=== PATIENT | female | born 1980 | race African-American/Black ===

== ENCOUNTER 2017-04-06 14:05 | Inpatient (IN) | payer OTHER ==
--- NOTE | ~2017-04-06 | CO ---
Unit #: [id number] #: [id number] Patient: HANY PAREDES [id number] [address] [place], [place] [address] [id number] I MR#: [id number] NAME: HANY PAREDES ROOM: 317 Age: 36 Sex: F Admission Date: 04/06/2017 : 1980 Attending Physician: Jaspreet Tabares M.D. Primary Care Physician: Edgar Chavez M.D. Consultation Date: 04/07/2017 CONSULTATION REPORT REASON FOR CONSULTATION COPD exacerbation. CHIEF COMPLAINT Cough and shortness of breath. HISTORY OF PRESENT ILLNESS A 36-year-old female with past medical history of COPD presents with the complaint of cough, shortness of breath, increasing sputum production and also came in with complaint of chest pain. I am seeing the patient at the bedside. Denies any nausea, vomiting, diarrhea. REVIEW OF SYSTEMS Positive pallor. No edema. No cyanosis. No jaundice. Rest is as per history of present illness. The rest of a 12-point review of systems has been reviewed and is negative. PHYSICAL EXAMINATION VITAL SIGNS: Temperature 98, pulse rate 70, respirations 12, blood pressure 130/70. NEUROLOGIC: Awake, alert and oriented. No neuro deficits. HEENT: PERRLA. EOMI. NECK: Supple. No JVD. CHEST: Bilateral air entry. Bilateral mild rhonchi. GI: Nontender. Soft. Bowel sounds positive. EXTREMITIES: No edema. SKIN: No rashes, no ulcer. LYMPHATIC: No lymphadenopathy. DIAGNOSTIC STUDIES Labs and imaging have been reviewed. ASSESSMENT 1. Acute bronchitis. 2. Acute exacerbation of COPD. 3. Rule out pneumonia. PLAN Plan is to continue patient on IV steroid and will order noncontrast CT of the chest and procalcitonin level. Please see orders for detailed plan. Thank you very much for this consultation. Unit #: [id number] #: [id number] Patient: HANY PAREDES Dictated by... Maximino Bartlett TD: 04/08/2017 14:07 JOB #: [id number] CONSULTATION REPORT Page 1 of 1 X Rosangela Cronin MD CONSULTATION REPORT
--- NOTE | ~2017-04-06 | ST ---
Unit #: [id number] #: [id number] Patient: HANY PAREDES [id number] [facility]. [place] [address] [facility]. [place], [place] [address] [id number] I MR#: [id number] NAME: HANY PAREDES : 1980 SEX: F STUDY DATE/TIME: 04/08/2017 UNIT: C3A PCU ROOM: [facility] STUDY DESCRIPTION: Attending Physician: Jaspreet Tabares M.D. Primary Care Physician: Edgar Chavez M.D. CARDIOLOGY REPORT EXAM Walking Lexiscan Cardiolite stress test. FINDINGS Baseline EKG: Sinus tachycardia, heart rate 106 beats per minute, left atrial abnormality, Q wave in V1, poor R-wave progression, left ventricular hypertrophy, early repolarization, nonspecific ST-T wave abnormalities in lateral leads. PROCEDURE Lexiscan is a 4-minute test with Lexiscan being injected within the first minute followed by Cardiolite. EKG showed a 0.[address] depression in lateral leads. Patient had no complaints of chest pain, palpitations, or dizziness. Also, with worsening ST elevation in lead III and aVR which is about [address] elevation in lead III and aVR. Also, 1.[address] depression in aVL. Patient had no complaints of chest pain, palpitations, or dizziness. Had increased shortness of breath and fatigueness which resolved in recovery phase. Next, maximal heart rate response was 142 beats per minute with a maximum blood pressure response of 198/121 mmHg. Next, at the end of recovery phase, patient's blood pressure was 188/100. The staff on the nursing unit was called to bring her metoprolol 75 mg p.o. STAT for hypertension. Cardiolite was injected after Lexiscan within the first minute of the test. Radionuclide tests pending. Please correlate with nuclear images. Dictated by... Patito Peterson A.P.R.N. for Maximino Jackson TD: 04/08/2017 09:44 JOB #: [id number] Unit #: [id number] #: [id number] Patient: HANY PAREDES CARDIOLOGY REPORT Page 1 of 1 X Patito Peterson APRN CARDIOLOGY REPORT
--- NOTE | ~2017-04-06 | DS ---
Unit #: [id number] #: [id number] Patient: HANY PAREDES [id number] [address] [address] [id number] I MR#: [id number] NAME: HANY PAREDES ROOM: [facility] Age: 36 Sex: F Admission Date: 04/06/2017 : 1980 Discharge Date: 04/10/2017 Attending Physician: Jaspreet Tabares M.D. Primary Care Physician: Edgar Chavez M.D. DISCHARGE SUMMARY DISCHARGE DIAGNOSES 1. Pneumonia. 2. Hypertension. 3. Diabetes. 4. History of transient ischemic attack. 5. Noncompliance. 6. Tobacco use. CONSULTS 1. Dr. Oliver, cardiology. 2. Dr. Cronin, pulmonary. DISCHARGE MEDICATIONS 1. Tapering dose of prednisone. 2. Metformin 800 mg b.i.d. 3. Cetirizine 10 mg daily. 4. Atorvastatin 80 mg h.s. 5. BuSpar 7.5 mg daily. 6. Nicotine patch 14 mg daily. 7. Norvasc 5 mg daily. 8. Metoprolol 100 mg p.o. b.i.d. 9. Omnicef 300 mg b.i.d. for 7 days. 10. Hydrochlorothiazide 25 mg q.a.m. 11. Zestril 40 mg h.s. 12. Aspirin 325 daily. DIAGNOSTIC STUDIES AND PROCEDURES 1. Chest x-ray with borderline cardiomegaly. 2. CT chest without contrast right lower lobe peribronchial alveolar consolidation. 3. Thyroid ultrasound. No suspicious findings. Incidental 5 mm cyst in each thyroid lobe. HISTORY Please refer to History and Physical done by me for initial presentation of this female. HOSPITAL COURSE Pneumonia, status post evaluation by Pulmonary. Status post IV antibiotics, now okay with the Omnicef. Hypertension with noncompliance. The patient was counseled on the importance of complying with the home medications and the home medical regimen. Status post evaluation per cardiology. Stable. See discharge Unit #: [id number] #: [id number] Patient: HANY PAREDES medication reconciliation as above. Diabetes. Status post evaluation per Endocrinology. Hemoglobin A1c about 9.4. Outpatient follow up with Endocrinology. Resume home regime. Tobacco use. Counseled on importance of quitting. Will send her home with nicotine patch. History of TIA. Continue aspirin. DISPOSITION Home. FOLLOWUP Outpatient follow up with Cardiology, Pulmonary and Endocrinology. Dictated by... Jaspreet Tabares M.D. MALCOLM/chely TD: 04/10/2017 16:44 JOB #: [id number] DISCHARGE SUMMARY Page 1 of 1 X Jaspreet Tabares MD X DISCHARGE SUMMARY
--- NOTE | ~2017-04-06 | CT57 ---
[facility] A Service of [facility] RADIOLOGY TEXT RESULTS PATIENT: HANY PAREDES LOCATION: [facility] 317- : [birth year] UNIT #: [id number] AGE: [address]: Jaspreet Tabares MD SEX: F ORDER DR: [id number] [place] [id number] [facility]. [place], [place] [address] [id number] I MR#: [id number] Acc #: [id number] NAME: HANY PAREDES : 1980 SEX: F STUDY DATE/TIME: 04/07/2017 16:56 UNIT: [address] ROOM: [facility] STUDY DESCRIPTION: CT Chest Wo Cont Attending Physician: Jaspreet Tabares M.D. Ordering Physician: Rosangela Cronin M.D. Primary Care Physician: Edgar Chavez M.D. MEDICAL IMAGING REPORT This report is preliminary unless electronic signature is present EXAM Chest CT without contrast HISTORY Upper respiratory infection with cough and shortness of breath over the past 4 days. Chronic emphysema with exacerbation. TECHNIQUE Axial images were obtained without contrast and evaluated at lung and mediastinal windows. This CT exam was performed with one or more of the following radiation dose reduction techniques: automatic exposure control, adjustment of mA and/or kV according to patient size, and iterative reconstruction. FINDINGS Chest images at mediastinal window show no enlarged mediastinal or hilar lymph nodes. There is no evidence of pleural or pericardial fluid. Normal-sized nodes are seen adjacent to the trachea. Lung window imaging shows an area of alveolar consolidation in the right lower lobe in a peribronchial distribution consistent with an acute pneumonia. Also noted is mild volume loss at the left lung base involving anterior basilar segments of the left lower lobe. The upper lung oneal show mild emphysema with no suspicious infiltrates. No suspicious masses are seen in either lung. IMPRESSION Focal area of alveolar consolidation is seen in the right lower lobe in a peribronchial distribution consistent with acute pneumonia. The remaining lung oneal are clear. Emphysematous changes are seen in the upper lung oneal. [facility] A [facility] RADIOLOGY TEXT RESULTS PATIENT: HANY PAREDES LOCATION: [facility] 317-01 : [birth year] UNIT #: [id number] AGE: [address]: Jaspreet Tabares MD SEX: F ORDER DR: Dictated by... Lake Melendez M.D. THIS IS AN ELECTRONICALLY VERIFIED REPORT Lake Melendez M.D. at 04/08/2017 10:03 AM TORI/vangie TD: 04/08/2017 00:15 JOB #: [id number] MEDICAL IMAGING REPORT Page 1 of 1 COPY
--- NOTE | ~2017-04-06 | CO ---
Unit #: [id number] #: [id number] Patient: HANY PAREDES [id number] [address] [place], [place] [address] [id number] I MR#: [id number] NAME: HANY PAREDES ROOM: [facility] Age: 36 Sex: F Admission Date: 04/06/2017 : 1980 Attending Physician: Jaspreet Tabares M.D. Primary Care Physician: Edgar Chavez M.D. Consultation Date: 04/07/2017 CONSULTATION REPORT REASON FOR CONSULTATION Chest pain. HISTORY OF PRESENTING ILLNESS This is a 36-year-old -Italian female with a previous medical history of diabetes mellitus, hypertension, hyperlipidemia, TIAs, and a half pack per day smoker x20 years. She presented to the ER with complaints of increasing shortness of air over the last three weeks. Reports recent illness with frequent productive cough of yellowish sputum, fever, chills, body aches and a sore throat. She additionally reports intermittent chest pain. The chest pain is described as mid sternal and left chest stabbing pains with activity. The pains are worse with deep inspiration. The pains go away with rest and ibuprofen. She states she becomes diaphoretic and dyspneic with the pains at times. Her cardiac enzymes were negative and there were no acute findings on EKG. Her ischemic risk factors are positive for diabetes, hypertension, hyperlipidemia, tobacco abuse, and a positive family history of coronary artery disease. The patient has not been taking her diabetes and hypertension medicine routinely. States she is looking for a new primary care doctor and is trying to stretch out her prescription until she finds one. PAST MEDICAL HISTORY 1. Diabetes mellitus. 2. Hypertension. 3. Hyperlipidemia. 4. TIAs. 5. Tobacco abuse, one half pack per day x20 years. PAST SURGICAL HISTORY Tubal ligation. SOCIAL HISTORY She lives with her boyfriend. She does not work. Denies illicit drug use. Rare alcohol use socially. She smokes one half pack to one pack per day since she was 13 years old. FAMILY HISTORY Her mother had multiple cardiac stents and at the age of 51 after a CVA. Her father is 54 and has an AICD. Unit #: [id number] #: [id number] Patient: HANY PAREDES ALLERGIES No known drug allergies. HOME MEDICATIONS 1. Zestril 40 mg p.o. daily. 2. Metformin 850 mg p.o. twice daily. 3. Cetirizine 10 mg p.o. daily. 4. BuSpar 7.5 mg p.o. twice daily. 5. Atorvastatin calcium 80 mg p.o. daily. 6. Aspirin, enteric coated, 325 mg p.o. daily. REVIEW OF SYSTEMS Positive for shortness of breath, dyspnea on exertion, orthopnea, productive cough, fever, chills, body aches, nausea, vomiting and diarrhea. Reports hemoptysis this morning. Otherwise, negative except for what is stated in the HPI. PHYSICAL EXAMINATION GENERAL: This is an -Italian 36-year-old female. She is resting in bed in no acute distress. VITAL SIGNS: Temperature 98.3, heart rate 111 to 120 respiratory rate 22, blood pressure 179/108, 60 inches and 61 kg. HEENT: Head is atraumatic and normocephalic. Pupils are equal and round. Mucous membranes are moist. NECK: Supple. Trachea is midline. Negative for JVD. LUNGS: Clear to auscultation. Nonlabored respirations. CARDIOVASCULAR: S1, S2. Regular rate and rhythm. Positive 1/6 systolic murmur. ABDOMEN: Soft, nontender, nondistended. EXTREMITIES: Pulses are palpable. No pedal edema. No cyanosis. NEUROLOGIC: Alert and oriented x3. Moves all extremities equally and follows commands without difficulty. DIAGNOSTIC STUDIES LABORATORY: Strep screen was negative. Sodium 131, potassium 4.2, chloride 102, BUN 11, creatinine 0.9, glucose 407. Hemoglobin 12.2, hematocrit 38.6, white blood cell count 10.5, platelets 214. Point of care troponin was less than 0.05, troponin at 12:15 was less than 0.03 and repeat troponin was less than 0.03. BNP was 93. D-dimer was negative. IMAGING: Chest x-ray showed borderline (1) . Of note, CT scan of the abdomen and pelvis done August 28, 2008 showed multiple small noncalcified nodules within the right lung base, as well as early atherosclerotic calcification within the abdominal aorta. CARDIOVASCULAR: EKG showed sinus tachycardia with nonspecific T wave abnormalities and biatrial enlargement with a ventricular rate of 120. ASSESSMENT 1. Uncontrolled high blood pressure. 2. Probable dilated ascending aorta with aortic sclerosis. Unit #: [id number] #: [id number] Patient: HANY PAREDES 3. Chest pain, musculoskeletal. 4. Uncontrolled diabetes mellitus. 5. Smoking history. 6. Pulmonary nodules (2007). 7. Anxiety. 8. History of transient ischemic attack. 9. Hyperlipidemia. PLAN Blood pressure control. Continue lisinopril 40 mg p.o. every day. Add metoprolol 50 mg p.o. b.i.d., first dose now, and add hydrochlorothiazide 25 mg p.o. daily with first dose now. Check hemoglobin A1c, lipid profile, T4, and TSH. Continue statin therapy. Decrease aspirin to 81 mg p.o. daily. Check blood pressure supine and standing twice a day. 2D echocardiogram to check LV function. Will obtain exercise Cardiolite stress test in the morning. NPO after midnight and hold beta abdirahman in the morning for stress test tomorrow. The patient was advised on the importance of smoking cessation as well as the importance of diet and exercise. Discussed in great detail the importance of blood pressure and diabetes maintenance. Thank you for asking us to see this patient. We appreciate the consult. Dictated by... Mary Hallman APRN for Jose Oliver M.D. MICHELLE/love TD: 04/07/2017 12:05 JOB #: [id number] CONSULTATION REPORT Page 1 of 1 X X CONSULTATION REPORT
--- NOTE | ~2017-04-06 | TH ---
Unit #: [id number] #: [id number] Patient: HANY PADILLA [id number] [address] [address] [id number] I MR#: [id number] NAME: HANY PAREDES : 1980 SEX: F STUDY DATE/TIME: 04/08/2017 UNIT: C3A PCU ROOM: [facility] STUDY DESCRIPTION: Lexiscan stress test - Nuclear Attending Physician: Jaspreet Tabares M.D. Primary Care Physician: Edgar Chavez M.D. CARDIOLOGY REPORT PROCEDURE PERFORMED Lexiscan Cardiolite stress test - Nuclear portion. PROCEDURE Using technetium 99m-labeled Cardiolite, rest and stress SPECT images were obtained. Multiple SPECT images were obtained in various views, including horizontal and vertical long axis and short axis views of the left ventricle. Images were obtained by gated SPECT method. The patient was administered 10.91 mCi of Cardiolite at rest. The patient was administered 32.8 mCi of Cardiolite after Lexiscan infusion was completed. On the stress images, there is a small area of mildly decreased tracer uptake activity in the anteroapical wall. The rest images show normal perfusion. Comparing the rest and stress images, there is suspicion for a small area of stress-induced ischemia involving the anteroapical wall of the left ventricle. The left ventricular ejection fraction is calculated to be 43%. "There is no focal wall motion abnormality seen." CONCLUSION 1. There is suspicion for a small area of stress-induced ischemia involving the anteroapical wall of the left ventricle. 2. The left ventricular ejection fraction is calculated to be 43%. 3. There is "mild global hypokinesis seen." 4. Technically limited study. Clinical correlation is requested. Dictated by... Maximino Jackson TD: 04/08/2017 15:56 JOB #: [id number] Unit #: [id number] #: [id number] Patient: HANY PADILLA CARDIOLOGY REPORT Page 1 of 1 X Ailyn Ragsdale MD <ELECTRONICALLY SIGNED> 06/18/17 1429 CARDIOLOGY REPORT
--- NOTE | ~2017-04-06 | A ---
[facility] Nutrition Therapy DATE: 04/08/17 Patient: HANY PAREDES Physician: ANGE Address: [address] Room/Bed: [address] [place] [address], Zip: [place] [address] Admit Date: 04/06/17 Date of : [birth year] Height: 5 0 Weight: 134 61 NUTRITIONAL ASSESSMENT: REASON: Consult for DM diet education Assessment: RD spoke with pt at bedside. Pt reports that it is difficult for her to make healthy decisions at home. RD provided extensive consistent carbohydrate education, and discussed strategies that the pt could follow at home. Pt reportedly only consumes one large meal per day, and RD discussed implications of this. Pt voiced understanding of the information and demonstrated motivation to make changes. RD expects compliance with the diet. RD provided printed materials for the pt's reference and encouraged the pt to contact RD with any further questions. RD to remain available. Recommendations: 1. Pt to follow a 45 gram consistent carbohydrate diet as instructed by RD. 2. Pt would benefit from seeing an outpatient RD for follow up and accountability. Please contact RD with any further nutritional needs. Respectfully, JAYY CRUM RD, LD [employer] [facility] [employer] cc: client file
--- NOTE | ~2017-04-06 | HP ---
Unit #: [id number] #: [id number] Patient: HANY PAREDES [id number] [address] [address] [id number] I MR#: [id number] NAME: HANY PAREDES ROOM: [facility] Age: 36 Sex: F Admission Date: 04/06/2017 : 1980 Attending Physician: Jaspreet Tabares M.D. Primary Care Physician: Edgar Chavez M.D. HISTORY AND PHYSICAL REASON FOR ADMISSION 1. Acute exacerbation of chronic obstructive pulmonary disease. 2. History of bronchitis. 3. Atypical chest pain. 4. Hypertension. 5. Noncompliance. 6. Diabetes. 7. History of questionable CVAs in the past. 8. Continued tobacco use. HISTORY OF PRESENT ILLNESS Ms. Paredes is a 36-year-old female, patient of Dr. Chavze, who came to the emergency room with the complaint of shortness of air and dyspnea for several weeks, along with some atypical heavy sensation in the chest. The patient also states that she has been having some productive cough with some yellow greenish phlegm. She denies any fever or chills. Denies any nausea, vomiting, diarrhea or abdominal pain. No (1) to the heavy sensation through the chest. No radiation to any other parts of the body. The patient denies any previous history of any coronary artery disease. She does have a history of hypertension. However, she was not taking her medications. She said she was taking he medications once in two to three days. The patient also tells me that she had been having strokes in the past. She continues to smoke. PAST MEDICAL HISTORY 1. Hypertension. 2. Diabetes. 3. Chronic obstructive pulmonary disease. 4. Questionable stroke with questionable TIA. PAST SURGICAL HISTORY Tubal ligation. SOCIAL HISTORY Continues to smoke. Drinks occasionally. Denies any alcohol use. FAMILY HISTORY Unremarkable. ALLERGIES No known drug allergies. HOME MEDICATIONS Apparently she was supposed to take at home Unit #: [id number] #: [id number] Patient: HANY PAREDES 1. Lisinopril. 2. Metformin. 3. Naprosyn. 4. Atorvastatin. 5. Aspirin. 6. Buspirone. 7. Cetirizine. 8. Metformin. 9. Zestril. REVIEW OF SYSTEMS Negative except as above. PHYSICAL EXAMINATION GENERAL: The patient is a 36-year-old female in no acute distress. VITALS: Blood pressure 181/93, heart rate 120, respiratory rate 20, temperature 98.2. HEENT: Head is atraumatic. Pupils equal, round and reactive to light and accommodation. Extraocular muscles intact. Oropharynx is clear. NECK: Supple. No mass, no JVD, no bruits. CHEST: Diminished bilaterally with very mild expiratory wheezing. HEART: S1, S2. No murmurs. ABDOMEN: Soft, nontender, nondistended. LOWER EXTREMITIES: Without any cyanosis, clubbing or edema. NEUROLOGIC: Patient is grossly intact without any focal deficits. DIAGNOSTIC STUDIES IMAGING: Chest x-ray shows cardiomegaly. LABORATORY: Chemistry significant for blood glucose 407, sodium 131. Set of cardiac enzymes negative. White count 10.5, hemoglobin 12.2, hematocrit 38.6. ASSESSMENT/PLAN 1. Acute exacerbation of chronic obstructive pulmonary disease. Continue bronchodilator. Decrease steroids. Status post evaluation per pulmonary. Ordered CT of the chest. Follow up on the results. 2. Questionable bronchitis. Deferred to pulmonology. No white count. No fever. Again, will defer to pulmonary for the antibiotics. 3. Chest pain, status post cardiology evaluation. Two-dimensional echo is pending. Scheduled for stress test. 4. Hypertension. Continue Zestril. Started on Lopressor per cardiology and HCTZ. 5. Noncompliance. Counseled on the importance of compliance with medications. 6. Diabetes. Status post evaluation per Dr. Du. Likely exacerbated with the IV steroids. IV steroids have been decreased. Continue management per Dr. Du. 7. History of questionable CVA. TIAs in the past. Continue aspirin. 8. Continues tobacco use. Counseled on the importance of quitting tobacco. 9. GI and DVT prophylaxis. 10. Continue PPI and Lovenox. 11. Dyslipidemia. Continue statin. Unit #: [id number] #: [id number] Patient: HANY PAREDES Dictated by Maximino Lees/david TD: 04/08/2017 07:10 JOB #: [id number] HISTORY AND PHYSICAL Page 1 of 1 X Jaspreet Tabares MD X HISTORY AND PHYSICAL
--- NOTE | ~2017-04-06 | CR72 ---
[facility] A Service of [facility] RADIOLOGY TEXT RESULTS PATIENT: HANY PAREDES LOCATION: [facility] 317-01 : [birth year] UNIT #: [id number] AGE: [address]: Jaspreet Tabares MD SEX: F ORDER DR: [id number] [facility] [address] [place], [place] [address] [id number] I MR#: [id number] Acc #: [id number] NAME: HANY PAREDES : 1980 SEX: F STUDY DATE/TIME: 04/06/2017 17:21 UNIT: CEDOF ROOM: 56358 STUDY DESCRIPTION: CR Chest Single View Portable Attending Physician: Jaspreet Tabares M.D. Ordering Physician: Carlos Linares D.O. Primary Care Physician: Edgar Chavez M.D. MEDICAL IMAGING REPORT This report is preliminary unless electronic signature is present EXAM Portable chest 04/06/2017 HISTORY 36-year-old female with chest pain and shortness of air beginning 2.5 weeks ago. COMPARISON STUDIES Chest 09/05/2005. FINDINGS Frontal chest demonstrates clear lungs. No pleural effusion or pneumothorax. Heart size is borderline enlarged. Mediastinal pulmonary vasculature unremarkable. IMPRESSION Borderline cardiomegaly. No other acute chest findings. Dictated by... Darwin Evans M.D. THIS IS AN ELECTRONICALLY VERIFIED REPORT Darwin Evans M.D. at 04/06/2017 10:54 PM JALEN/jo-ann TD: 04/06/2017 21:32 JOB #: [id number] MEDICAL IMAGING REPORT Page 1 of 1 COPY
--- NOTE | ~2017-04-06 | US128 ---
[id number] [facility] [address]. [place], [place] [address] [id number] I MR#: [id number] #: [id number] NAME: HANY PAREDES : 1980 SEX: F STUDY DATE/TIME: 04/07/2017 18:45 UNIT: [id number] ROOM: [facility] STUDY DESCRIPTION: US Thyroid Attending Physician: Jaspreet Tabares M.D. Ordering Physician: Jaspreet Tabares M.D. Primary Care Physician: Edgar Chavez M.D. MEDICAL IMAGING REPORT This report is preliminary unless electronic signature is present EXAM Thyroid ultrasound HISTORY Difficulty swallowing for several years. FINDINGS Ultrasound examination of the thyroid gland demonstrates a 5 mm incidental cyst in the lower pole of the right thyroid lobe and a 5 mm incidental cyst in the upper pole left thyroid lobe. No solid or suspicious thyroid nodule. Both thyroid lobes measure 5.1 cm in length. Remainder of the thyroid parenchymal echotexture is normal. IMPRESSION 1. No suspicious finding. No thyroid enlargement or solid nodule. 2. Incidental 5 mm cyst in each thyroid lobe. Dictated by... Wellington Carlisle M.D. THIS IS AN ELECTRONICALLY VERIFIED REPORT Wellington Carlisle M.D. at 04/08/2017 11:30 PM DFL/summer TD: 04/08/2017 01:27 JOB #: [id number] MEDICAL IMAGING REPORT Page 1 of 1 COPY
--- NOTE | ~2017-04-06 | CO ---
Unit #: [id number] #: [id number] Patient: HANY PAREDES [id number] [facility]. [place], [place] [address] [id number] I MR#: [id number] NAME: HANY PAREDES ROOM: [facility] Age: Sex: F Admission Date: 04/06/2017 : 1980 Attending Physician: Jaspreet Tabares M.D. Primary Care Physician: Edgar Chavez M.D. Consultation Date: 04/06/2017 CONSULTATION REPORT REASON FOR CONSULT Management of diabetes mellitus. HISTORY OF PRESENT ILLNESS The patient is a 36-year-old black female who has history of type 2 diabetes mellitus, hypertension, hyperlipidemia, TIAs, history of tobacco use. Presented to the emergency room with increasing shortness of air associated with some yellowish sputum, fever, chills and body aches, some chest pains. She has been started on IV steroids, receiving Solu-Medrol 80 mg. Her blood sugar has been running over 300 mg/dL. Her A1C is above 9%. I have been asked to see the patient for further management of diabetes. As per patient, she is supposed to be only on metformin, but she has not been taking it regularly. She has not seen Dr. Chavez in a long time either. MEDICAL HISTORY 1. Type 2 diabetes mellitus. 2. Hypertension. 3. Hyperlipidemia. 4. TIAs. 5. Tobacco use, half pack per day for 20 years. PAST SURGICAL HISTORY Tubal ligation. SOCIAL HISTORY Lives with her boyfriend. Does not work. No illicit drug abuse. Continues to smoke since age 13. FAMILY HISTORY Coronary artery disease and diabetes. ALLERGIES None. HOME MEDICATIONS Supposed to be Zestril 40 mg daily, metformin 850 b.i.d., BuSpar 7.5 mg b.i.d., atorvastatin 80 mg daily, aspirin daily, but of note the patient has not been taking her medications regularly at home. REVIEW OF SYSTEMS A 12-point review of systems was remarkable for shortness of air on exertion, dyspnea, cough, fever, chills, some nausea, hyperglycemia. Is Unit #: [id number] #: [id number] Patient: HANY PAREDES reported to have some diarrhea. Rest of the review of systems is unremarkable. PHYSICAL EXAMINATION GENERAL: On physical examination she is comfortable, awake, alert, oriented to time, place and person. No acute respiratory distress. VITAL SIGNS: Temp is 98.2, pulse 120, respirations 20, blood pressure 181/93. HEENT: EOMI. Pupils equally react to light. NECK: Supple. She does have diffuse thyromegaly; right lobe is larger than the left lobe. CHEST: Good air entry. CVS: Regular rhythm. S1 and S2. No murmurs. ABDOMEN: Soft. Nontender. Nondistended. Bowel sounds positive. EXTREMITIES: No edema or ulcers are noted. NEUROLOGIC: Nonfocal. Cranial nerves grossly intact. SKIN: No rashes or ulcers noted. MUSCULOSKELETAL: Normal. DIAGNOSTIC STUDIES LABORATORY: Labs were reviewed. Glucose was 407, sodium 131, potassium 4.2, chloride 102, CO2 20. A1C 9.4. Triglycerides above 400. TSH 0.16. ASSESSMENT 1. Type 2 diabetes mellitus, poorly controlled due to poor compliance. 2. Hypertension, uncontrolled. 3. Goiter. 4. Abnormal thyroid function test consistent with euthyroid sick syndrome. PLAN AND RECOMMENDATIONS Will get the nutrition consult. Give patient Levemir 1 dose now and then start NPH 40 units before each Solu-Medrol dose. NovoLog 10 units each meal. Limit carbohydrates to 45 grams per meal. Check the thyroid ultrasound. Thanks again for the consultation. Dictated by... Maximino Finnegan/tuan TD: 04/08/2017 11:29 JOB #: [id number] Unit #: [id number] #: [id number] Patient: HANY PAREDES CONSULTATION REPORT Page 1 of 1 X Leandro Du MD CONSULTATION REPORT
--- NOTE | ~2017-04-06 | EKG ---
PATIENT: HANY PAREDES UNIT #: [id number] Ventricular Rate: 122 BPM Atrial Rate: 122 BPM P-R Interval: 124 ms QRS Duration: 84 ms Q-T Interval: 346 ms QTC Calculation(Bezet): 493 ms P [place]: 72 degrees Calculated R [place]: 8 degrees Calculated T [place]: 74 degrees Diagnosis Line: Sinus tachycardia Diagnosis Line: Biatrial enlargement Diagnosis Line: Poor R wave progression questionable lead position Diagnosis Line: or body habitus Abnormal ECG Diagnosis Line: No previous ECGs available Diagnosis Line: Confirmed by SULAIMAN JARRETT MD ([id number]) on 04/07/2017 Diagnosis Line: 10:02:42 AM INTERPRETING MD: LUIZA LEE
[~2017-04-06 14:05] MED LIST: TYLOX 5/500 CAP1 CAP PO
[2017-04-06 17:06] LABS: BASOPHIL% 0.3 % (0-2.5); EOSINOPHIL# 0.2 X10e3 (0-0.7); EOSINOPHIL% 1.3 % (0.0-7.0); HEMATOCRIT 41.3 % (35.0-45.0); HEMOGLOBIN 13.3 gm/dL (12.0-16.0); LYMPHOCYTE# 3.8 X10e3 (1.0-3.5); LYMPHOCYTE% 29.7 % (17.0-45.0); MEAN CELL VOLUME 84.7 FL (83-96); MEAN CORPUSCULAR HEMOGLOBIN 27.2 PG (28-34); MEAN CORPUSCULAR HGB CONC 32.1 g/dL (30-36); MEAN PLATELET VOLUME 8.6 FL (6.5-11.5); MONOCYTE# 0.5 X10e3 (0-1.0); MONOCYTE% 3.8 % (3.0-12.0); NEUTROPHIL# 8.2 X10e3 (1.5-7.1); NEUTROPHIL% 64.9 % (40-75); PLATELET COUNT 253 X10e3 (140-420); RED BLOOD COUNT 4.87 X10e (3.90-5.30); RED CELL DISTRIBUTION WIDTH 14.6 % (11.0-15.5); WHITE BLOOD COUNT 12.7 X10e3 (4.0-10.5)
[2017-04-06 17:09] LABS: POC - CKMB 1.2 ng/mL (0.0-7.9); POC - TROPONIN <0.05 ng/mL (<=0.05)
[2017-04-06 17:12] LABS: DIFF IND NO
[2017-04-06 17:17] LABS: ALKALINE PHOSPHATASE 73 U/L (32-92); ALT (SGPT) 24 U/L (10-40); AST (SGOT) 19 U/L (10-42); BILIRUBIN, DIRECT <0.1 mg/dL (0.0-0.2); BILIRUBIN,INDIRECT 0.2 mg/dL (0.0-0.9); BILIRUBIN,TOTAL 0.3 mg/dL (0.2-2.0); BLOOD UREA NITROGEN 9 mg/dL (9-23); BUN/CREATININE RATIO 12.85; CALCIUM SERUM 9.1 mg/dL (8.4-10.2); CARBON DIOXIDE 22 mmol/L (22-31); CHLORIDE 103 mmol/L (100-111); CREATININE SERUM 0.7 mg/dL (0.6-1.4); GLOM FILT RATE Estimated 130.1 mL/min (>60); GLUCOSE FASTING 189 mg/dL (70-110); POTASSIUM 3.6 mmol/L (3.5-5.1); PROTEIN TOTAL SERUM 7.9 g/dL (6.0-8.3); SODIUM 134 mmol/L (135-145)
[2017-04-06 17:24] LABS: URINE SOURCE CLEAN CATCH
[2017-04-06 17:31] LABS: URINE APPEARANCE CLEAR; URINE BILIRUBIN NEG (NEG); URINE BLOOD NEG (NEG); URINE COLOR YELLOW; URINE GLUCOSE 500 MG/DL (NEG); URINE KETONE NEG (NEG); URINE LEUKOCYTE ESTERASE NEG (NEG); URINE NITRATE NEG (NEG); URINE PH 5.5 (5-8); URINE PROTEIN 2+ (NEG); URINE SPECIFIC GRAVITY 1.022 (1.003-1.035)
[2017-04-06 17:35] LABS: U HYALINE CASTS AUWI 0-2 /[LPF]; URBCS1 AUWI 0-2 /[HPF] (0-2); URINE BACTERIA AUWI NEG (NEGATIVE); URINE SQUAMOUS EPITHELIAL CELL OCC /[HPF]; UWBCS1 AUWI 0-2 (0-5)
[2017-04-06 17:41] LABS: AMPHETAMINE NEG (NEG); BARBITURATES NEG (NEG); BENZODIAZEPINES NEG (NEG); COCAINE NEG (NEG); MARIJUANA NEG (NEG); OPIATES NEG (NEG); TRICYCLIC ANTIDEPRESSANTS POS (NEG); U METHADONE NEG (NEG)
[2017-04-06 17:44] LABS: CULTURE INDICATED? NO
[2017-04-06 18:39] LABS: POC - CKMB <1.0 ng/mL (0.0-7.9); POC - TROPONIN <0.05 ng/mL (<=0.05)
[2017-04-06] MEDS ORDERED: ZESTRIL40 MG PO (22:10)
[2017-04-06] MEDS ORDERED: ALL DAY ALLERGY10 M3 PO (22:12)
[2017-04-06] MEDS ORDERED: ASPIRIN ENTERI325 M1 PO (22:13)
[2017-04-06] MEDS ORDERED: ATORVASTATIN CA80 MG PO (22:13)
[2017-04-06] MEDS ORDERED: BUSPIRONE HCL7.5 MG PO (22:13)
[2017-04-07 01:18] LABS: %MB 2.7 % (0.0-4.0); MB 3.3 ng/ml
[2017-04-07 06:12] LABS: HEMATOCRIT 38.6 % (35.0-45.0); HEMOGLOBIN 12.2 gm/dL (12.0-16.0); MEAN CELL VOLUME 85.7 FL (83-96); MEAN CORPUSCULAR HEMOGLOBIN 27.2 PG (28-34); MEAN CORPUSCULAR HGB CONC 31.7 g/dL (30-36); MEAN PLATELET VOLUME 8.8 FL (6.5-11.5); RED BLOOD COUNT 4.5 X10e (3.90-5.30); RED CELL DISTRIBUTION WIDTH 14.6 % (11.0-15.5); WHITE BLOOD COUNT 10.5 X10e3 (4.0-10.5)
[2017-04-07 06:58] LABS: ALBUMIN SERUM 3.6 g/dL (3.5-5.0); BILIRUBIN,TOTAL 0.4 mg/dL (0.2-2.0); BUN/CREATININE RATIO 12.22; CALCIUM SERUM 9.6 mg/dL (8.4-10.2); CREATININE SERUM 0.9 mg/dL (0.6-1.4); GLOM FILT RATE Estimated 96.1 mL/min (>60); POTASSIUM 4.2 mmol/L (3.5-5.1); PROTEIN TOTAL SERUM 6.9 g/dL (6.0-8.3)
[2017-04-07 07:11] LABS: %MB 4.3 % (0.0-4.0); MB 2.8 ng/ml
[2017-04-07 11:10] LABS: CHOLESTEROL 211 mg/dL (0-200); HDL CHOLESTEROL 44 mg/dL (35-95); TRIGLYCERIDES 409 mg/dL (10-160)
[2017-04-07 11:48] LABS: THYROID STIMULATING HORMONE 0.16 uIU/ml (0.34-5.60)
[2017-04-07 11:55] LABS: FREE THYROXIN (T4) 1.14 ng/dL (0.58-1.64)
[2017-04-08 06:46] LABS: HEMATOCRIT 37.6 % (35.0-45.0); HEMOGLOBIN 11.9 gm/dL (12.0-16.0); MEAN CELL VOLUME 84.2 FL (83-96); MEAN CORPUSCULAR HEMOGLOBIN 26.8 PG (28-34); MEAN CORPUSCULAR HGB CONC 31.8 g/dL (30-36); MEAN PLATELET VOLUME 8.4 FL (6.5-11.5); RED BLOOD COUNT 4.47 X10e (3.90-5.30); RED CELL DISTRIBUTION WIDTH 14.4 % (11.0-15.5)
[2017-04-08 06:47] LABS: WHITE BLOOD COUNT 16.6 X10e3 (4.0-10.5)
[2017-04-08 07:10] LABS: BUN/CREATININE RATIO 18.75; CALCIUM SERUM 9.9 mg/dL (8.4-10.2); CREATININE SERUM 0.8 mg/dL (0.6-1.4); GLOM FILT RATE Estimated 110.8 mL/min (>60); POTASSIUM 4.2 mmol/L (3.5-5.1)
[2017-04-09 05:50] LABS: HEMATOCRIT 36.7 % (35.0-45.0); HEMOGLOBIN 11.5 gm/dL (12.0-16.0); MEAN CELL VOLUME 85.3 FL (83-96); MEAN CORPUSCULAR HEMOGLOBIN 26.8 PG (28-34); MEAN CORPUSCULAR HGB CONC 31.4 g/dL (30-36); MEAN PLATELET VOLUME 8.8 FL (6.5-11.5); RED BLOOD COUNT 4.3 X10e (3.90-5.30); RED CELL DISTRIBUTION WIDTH 14.6 % (11.0-15.5); WHITE BLOOD COUNT 19.6 X10e3 (4.0-10.5)
[2017-04-09 06:22] LABS: BUN/CREATININE RATIO 23.33; CALCIUM SERUM 9.4 mg/dL (8.4-10.2); CREATININE SERUM 0.9 mg/dL (0.6-1.4); GLOM FILT RATE Estimated 96.1 mL/min (>60); POTASSIUM 3.5 mmol/L (3.5-5.1)
[2017-04-10] MEDS ORDERED: NICOTINE1 EACH TD (17:19)
[2017-04-10] MEDS ORDERED: DULERA 200 MCG/13 GM INH (17:20)
[2017-04-10] MEDS ORDERED: PROVENTIL INH0.5 ML INH (17:40)
[2017-04-10] MEDS ORDERED: HYDROCHLOROTHIA25 MG PO (17:50)
[2017-04-10] MEDS ORDERED: AMLODIPINE BESYL5 MG PO (17:51)
[2017-04-10] MEDS ORDERED: OMNICEF300 MG PO (17:53)
[2017-04-10] MEDS ORDERED: METOPROLOL SUC100 MG PO (17:53)
[2017-04-14] MEDS ORDERED: ALIVE WOMEN'S1 EAC1 PO (08:22)
[2017-04-14] MEDS ORDERED: ZOFRAN PO (08:22)
[2017-04-14] MEDS ORDERED: METFORMIN HCL850 MG PO (22:11)
== END 2017-04-10 18:26 | disposition home or self-care (01) | DRG 190 ==
LOC: CED 14:05 → C3A PCU 20:33 → CEDOF 20:33 → CED 20:43 → CEDOF 20:43 → C3A PCU 21:45 → CEDOF 21:45 → C3A PCU 21:45
PROVIDERS: Emergency Medicine; Hospitalist; Internal Medicine Cardiovascular Disease
PROC: B24BYZZ Ultrasonography of Heart with Aorta using Other Contrast (ICD-10-PCS; principal; 2017-04-07)
DX: J44.1 Chronic obstructive pulmonary disease with (acute) exacerbation (principal); J18.9 Pneumonia, unspecified organism; I11.9 Hypertensive heart disease without heart failure; R07.89 Other chest pain; F17.210 Nicotine dependence, cigarettes, uncomplicated; Z86.73 Personal history of transient ischemic attack (TIA), and cerebral infarction without residual deficits; Z91.14 Patient's other noncompliance with medication regimen; Z71.6 Tobacco abuse counseling; Z79.82 Long term (current) use of aspirin; Z98.51 Tubal ligation status; I70.0 Atherosclerosis of aorta; I77.819 Aortic ectasia, unspecified site; E11.65 Type 2 diabetes mellitus with hyperglycemia; R91.8 Other nonspecific abnormal finding of lung field; E07.81 Sick-euthyroid syndrome; E04.9 Nontoxic goiter, unspecified; J20.9 Acute bronchitis, unspecified; J44.0 Chronic obstructive pulmonary disease with (acute) lower respiratory infection; R00.0 Tachycardia, unspecified; T38.0X5A Adverse effect of glucocorticoids and synthetic analogues, initial encounter; Z79.84 Long term (current) use of oral hypoglycemic drugs
CPT/HCPCS: 36415; 71010; 71250; 76536; 78452; 80048; 80053; 80061; 80076; 80307; 81003; 82308; 82550; 82553; 82947; 83036; 83690; 83880; 84439; 84443; 84484; 84703; 85025; 85027; 85379; 87651; 93005; 93017; 93306; 94640; 94760; 96374; 96375; 99285; A9500; J0360; J1650; J1815; J1885; J2270; J2405; J2785; J2920; J2930

== ENCOUNTER → 2017-04-14 | Outpatient (CLI) | payer OTHER ==
[~2017-04-14] MED LIST changes: +ALIVE WOMEN'S1 EAC1 PO; +ALL DAY ALLERGY10 M3 PO; +AMLODIPINE BESYL5 MG PO; +ASPIRIN ENTERI325 M1 PO; +ATORVASTATIN CA80 MG PO; +BUSPIRONE HCL7.5 MG PO; +DULERA 200 MCG/13 GM INH; +HYDROCHLOROTHIA25 MG PO; +METFORMIN HCL850 MG PO; +METOPROLOL SUC100 MG PO; +NICOTINE1 EACH TD; +OMNICEF300 MG PO; +PROVENTIL INH0.5 ML INH; +ZESTRIL40 MG PO; +ZOFRAN PO
--- NOTE | ~2017-04-14 | EKG ---
PATIENT: HANY PADILLA UNIT #: [id number] Ventricular Rate: 90 BPM Atrial Rate: 90 BPM P-R Interval: 130 ms QRS Duration: 80 ms Q-T Interval: 374 ms QTC Calculation(Bezet): 457 ms P [place]: 48 degrees Calculated R [place]: 8 degrees Calculated T [place]: 89 degrees Diagnosis Line: Normal sinus rhythm Diagnosis Line: Possible Left atrial enlargement Diagnosis Line: Left ventricular hypertrophy Diagnosis Line: Nonspecific T wave abnormality Diagnosis Line: Abnormal ECG Diagnosis Line: Diagnosis Line: Confirmed by SHANT ANDERSEN MD ([id number]) on Diagnosis Line: 04/15/2017 7:38:20 AM INTERPRETING : LUIS M
[2017-04-14 08:21] LABS: HEMATOCRIT 35.6 % (35.0-45.0); HEMOGLOBIN 11.5 gm/dL (12.0-16.0); MEAN CELL VOLUME 84.7 FL (83-96); MEAN CORPUSCULAR HEMOGLOBIN 27.4 PG (28-34); MEAN CORPUSCULAR HGB CONC 32.3 g/dL (30-36); RED BLOOD COUNT 4.21 X10e (3.90-5.30); RED CELL DISTRIBUTION WIDTH 14.6 % (11.0-15.5)
[2017-04-14 08:37] LABS: INR 0.9; PARTIAL THROMBOPLASTIN TIME 25.4 SECONDS (23.5-31.3); PROTHROMBIN TIME (PATIENT) 9.7 SECONDS (9.6-11.5)
[2017-04-14 08:43] LABS: CREATININE SERUM 0.7 mg/dL (0.6-1.4); GLOM FILT RATE Estimated 130.1 mL/min (>60); POTASSIUM 4.4 mmol/L (3.5-5.1)
== END | disposition home or self-care (01) ==
LOC: CCVL 07:51
PROVIDERS: Internal Medicine Cardiovascular Disease
PROC: 4A023N7 Measurement of Cardiac Sampling and Pressure, Left Heart, Percutaneous Approach (ICD-10-PCS; principal; 2017-04-14)
PROC: B211YZZ Fluoroscopy of Multiple Coronary Arteries using Other Contrast (ICD-10-PCS; 2017-04-14)
PROC: B215YZZ Fluoroscopy of Left Heart using Other Contrast (ICD-10-PCS; 2017-04-14)
DX: I25.118 Atherosclerotic heart disease of native coronary artery with other forms of angina pectoris (principal); I10 Essential (primary) hypertension; E11.65 Type 2 diabetes mellitus with hyperglycemia; Z79.84 Long term (current) use of oral hypoglycemic drugs; F17.200 Nicotine dependence, unspecified, uncomplicated; E78.5 Hyperlipidemia, unspecified; Z79.899 Other long term (current) drug therapy; Z79.82 Long term (current) use of aspirin; Z86.73 Personal history of transient ischemic attack (TIA), and cerebral infarction without residual deficits; Z82.49 Family history of ischemic heart disease and other diseases of the circulatory system; Z98.51 Tubal ligation status
CPT/HCPCS: 36415; 80048; 84703; 85027; 85610; 85730; 93005; C1769; C1887; C1894; J1644; J2250; J3010

== ENCOUNTER 2017-07-01 11:46 | Emergency (ER) | payer OTHER ==
[~2017-07-01] VITALS: Ht 152.4 cm; Wt 63.5 kg
--- NOTE | ~2017-07-01 | CR63 ---
[facility] A Service of [facility] RADIOLOGY TEXT RESULTS PATIENT: HANY PADILLA LOCATION: [facility] : [birth year] UNIT #: [id number] AGE: [address]: Love Chavez MD SEX: F ORDER DR: [id number] [facility]. [place], [place] [address] [id number] MR#: [id number] #: [id number] NAME: HANY PADILLA : 1980 SEX: F STUDY DATE/TIME: 07/01/2017 13:10 UNIT: [facility] ROOM: STUDY DESCRIPTION: CR Chest 2 View Attending Physician: Love Chavez M.D. Ordering Physician: Love Chavez M.D. Primary Care Physician: Primary Care Physician No MEDICAL IMAGING REPORT This report is preliminary unless electronic signature is present EXAM Two-view chest, 07/01/2017 INDICATION 37-year-old female with cough, congestion, chest pain. Symptoms for 3 days. Hypertension. TECHNIQUE 2 views of the chest were performed. COMPARISON Correlation is made with CT 04/07/2017. FINDINGS Cardiac silhouette is borderline in size and stable. The vascularity is unremarkable. There is chronic atelectasis or scarring in the left lung base. On the frontal projection there are coarsened interstitial markings in the right lower lobe. Imaging findings are similar to the prior study of 04/06/[address] of 04/07/2017 demonstrated pneumonia in the right lower lobe. Imaging features today and may reflect chronic infiltrate, or potentially, an element of underlying scarring and should be correlated with physical exam findings. Followup to clearing recommended after appropriate therapy. There is no new dense consolidation or effusion. Calcified granulomas are present and there is no pneumothorax. IMPRESSION 1. Coarsened interstitial markings in the right lung base similar to the prior study of 04/06/2017. CT at that same time demonstrated lower lobe pneumonia on the right. Imaging features today may reflect persistent or recurrent pneumonia or an element of scarring. Correlate with physical exam findings with imaging followup to [facility] A Service of [facility] RADIOLOGY TEXT RESULTS PATIENT: HANY PADILLA [id number] : [birth year] UNIT #: [id number] AGE: [address]: Love Chavez MD SEX: F ORDER DR: resolution after appropriate therapy. 2. There is no new dense consolidation or effusion. Chronic atelectasis or scarring in the left lung base. STAT * RESULT Dictated by... Vu Carpenter M.D. THIS IS AN ELECTRONICALLY VERIFIED REPORT Vu Carpenter M.D. at 07/01/2017 5:18 PM [place] TD: 07/01/2017 14:14 JOB #: [id number] MEDICAL IMAGING REPORT Page 1 of 1 COPY
[2017-07-01 13:36] LABS: BASOPHIL% 0.4 % (0-2.5); EOSINOPHIL# 0.4 X10e3 (0-0.7); EOSINOPHIL% 3.1 % (0.0-7.0); HEMATOCRIT 37.3 % (35.0-45.0); HEMOGLOBIN 12.1 gm/dL (12.0-16.0); LYMPHOCYTE% 17.6 % (17.0-45.0); MEAN CELL VOLUME 86.6 FL (83-96); MEAN CORPUSCULAR HEMOGLOBIN 28.1 PG (28-34); MEAN CORPUSCULAR HGB CONC 32.5 g/dL (30-36); MEAN PLATELET VOLUME 8.6 FL (6.5-11.5); MONOCYTE# 0.7 X10e3 (0-1.0); NEUTROPHIL# 8.5 X10e3 (1.5-7.1); NEUTROPHIL% 72.9 % (40-75); PLATELET COUNT 242 X10e3 (140-420); RED BLOOD COUNT 4.31 X10e (3.90-5.30); RED CELL DISTRIBUTION WIDTH 16.4 % (11.0-15.5); WHITE BLOOD COUNT 11.6 X10e3 (4.0-10.5)
[2017-07-01 13:39] LABS: DIFF IND NO
[2017-07-01 14:04] LABS: BUN/CREATININE RATIO 13.33; CALCIUM SERUM 8.9 mg/dL (8.4-10.2); CREATININE SERUM 0.6 mg/dL (0.6-1.4); GLOM FILT RATE Estimated 135.9 mL/min (>60)
== END 2017-07-01 16:02 | disposition home or self-care (01) ==
LOC: CED 11:46
PROVIDERS: Emergency Medicine
DX: J18.9 Pneumonia, unspecified organism (principal)
CPT/HCPCS: 71020; 80048; 85025; 87651; 94640; 96361; 96374; 96375; 99285; J2930